=== PATIENT | male | born 1995 | race Two or more races ===

== ENCOUNTER 2022-04-16 23:42 | Emergency (ER) | payer SELFPAY ==
[~2022-04-16] VITALS: Ht 170.2 cm; Wt 95.4 kg
[2022-04-17 00:04] VITALS: BP 127/75
== END 2022-04-17 01:27 | disposition left against medical advice (07) ==
LOC: ER 23:42 → EDBD 23:42 → ER 04-17 01:27
DX: T22.10XA Burn of first degree of shoulder and upper limb, except wrist and hand, unspecified site, initial encounter (principal); Z53.21 Procedure and treatment not carried out due to patient leaving prior to being seen by health care provider; X08.8XXA Exposure to other specified smoke, fire and flames, initial encounter; Y93.89 Activity, other specified; Y92.89 Other specified places as the place of occurrence of the external cause; Y99.8 Other external cause status